=== PATIENT | male | born 1995 | race Caucasian/White ===

== ENCOUNTER 2018-07-03 16:03 | Emergency (ER) | payer BC, SELFPAY ==
[2018-07-03 16:08] VITALS: BP 162/85; PULSE 134; RESP 16; TEMP 37; O2SAT 96
--- NOTE | 2018-07-03 16:09 | W.ED.GENAD ---
Discharge Plan Disposition Patient Disposition: HOME Condition: Fair Discharge Details Chief Complaint: RashLesion Clinical Impression: Cellulitis of buttock Primary Care Provider: Isabel Ortiz ED Provider: Provider,Temporary Home Meds and New Rx's Prescriptions: New cephalexin [Keflex] 500 mg capsule 500 mg PO QID Qty: 28 RF: 0 Discharge Instructions Instructions: Cellulitis (ED) Additional Instructions: Please take antibiotics as prescribed, even if symptoms improve please take entire course. Continue to monitor the area for new/worsening symptoms including spreading of the redness, increased swelling, increased pain, fevers/chills. If these arise please seek care urgently once again. Tylenol and/or Motrin as needed for discomfort. Please contact primary care tomorrow to schedule appointment for reevaluation at the end of the week. Referrals: Isabel Ortiz [Primary Care Provider] - Discharge Data Discharge Date/Time-TO BE ENTERED AT DEPARTURE: 07/03/18 16:45 Medical Decision Making Patient is a 22-year-old male, coming by his mother, with chief complaint of swelling and erythema to the superior aspect of the gluteal cleft. He reports his symptoms began initially a few weeks ago but over recent days the pain has increased. Has not been able to feel a palpable hardened area to the left side of the gluteal cleft. Mother evaluated this yesterday and feels that it has grown in size as of today. He denies any fevers or chills. No change in bowel or bladder habits. Denies any abdominal pain. Pain does not radiate. Has not had symptoms like this historically On exam, patient has an indurated erythematous area approximately 2 cm in diameter on the left side of the gluteal cleft. No palpable area of fluctuance. I did explore this with an ultrasound I do not see any fluid collection to suggest an abscess. Rather, this seems to be localized cellulitis. Patient is noted to be tachycardic at 134. He reports that he is very nervous and his heart rate is always elevated when at doctor's office. Mother agrees with this statement. He is afebrile and nontoxic-appearing. Patient will be placed on Keflex. Encouraged hydration. Advise follow-up with primary care next week for reevaluation. At this point, I do not see any evidence of abscess or cyst. We did discuss new/worsening symptoms and when to seek care urgently once again. All of her questions and concerns were addressed and they are in agreement this plan. HPI General Mode of arrival: ambulatory. Date/Time Provider Initiated Documentation: 07/03/18 16:06. Limitations to Documentation: no limitations. Information obtained by: patient and family. History of Present Illness 22 year old M presents to the emergency department with the chief complaint of swelling and pain to gluteal cleft, described as moderate, with intensity rated at 7. Quality is described as aching, and is localized to the buttocks and left. Patient reports no radiation. Patient started experiencing this week(s) and it has been constant. No relieving factors improve symptom(s), No exacerbating factors reported . Patient notes denies cough, fever/chills, nausea/vomiting and rash. Patient did receive the following treatments prior to arrival, none Related Data Home Medications Medication Instructions Recorded Confirmed cephalexin [Keflex] 500 mg PO QID #28 cap 07/03/18 Previous Rx's Medication Instructions Recorded cephalexin [Keflex] 500 mg PO QID #28 cap 07/03/18 Allergies Allergy/AdvReac Type Severity Reaction Status Date / Time No Known Allergies Allergy Unverified 07/03/18 16:11 Review of Systems Constitutional Reports as per HPI, Denies chills and Denies fever(s) Musculoskeletal Reports as per HPI Integumentary/Breasts Reports as per HPI Neurologic Reports as per HPI, Denies sensory deficit and Denies paresthesias [facility] Social History Smoking/Tobacco Use Status: Never Exam Const General: cooperative, healthy appearing, comfortable, no acute distress and well developed Nutritional Appearance: average body habitus and well nourished Orientation: alert and awake Resp Effort & Inspection: normal respiratory effort, able to speak in complete sentences and no respiratory distress Auscultation: clear to auscultation bilaterally Cardio Rate: regular rate Rhythm: regular rhythm Heart Sounds: S1 normal and S2 normal Back/Spine/Pelvis Other: Patient has a 2cm area of induration and erythmea to the left side of the gluteal cleft. No fluctuance is palpable. Area warm to palpation. Tenderness elicited with palpation over indurated area. Back/spine/pelvis image: 1. area of swelling and erythema Skin General skin exam: erythema and induration Neuro General: alert and awake Cognition: normal cognition Speech: speech normal Gait: normal gait Sensory Exam: no sensory deficits noted Psych Appearance: grossly normal and well kempt Mental Status: mental status grossly normal Speech and Movement: speech and movement normal
[2018-07-03 16:45] VITALS: PULSE 100; RESP 16; O2SAT 96
--- NOTE | 2018-07-03 22:23 | ED.GENADUL_ITS ---
Discharge Plan Disposition Patient Disposition: HOME Condition: Fair Discharge Details Chief Complaint: RashLesion Clinical Impression: Cellulitis of buttock Primary Care Provider: Isabel Ortiz ED Provider: Provider,Temporary Home Meds and New Rx's Prescriptions: New cephalexin [Keflex] 500 mg capsule 500 mg PO QID Qty: 28 RF: 0 Discharge Instructions Instructions: Cellulitis (ED) Additional Instructions: Please take antibiotics as prescribed, even if symptoms improve please take entire course. Continue to monitor the area for new/worsening symptoms including spreading of the redness, increased swelling, increased pain, fevers/chills. If these arise please seek care urgently once again. Tylenol and/or Motrin as needed for discomfort. Please contact primary care tomorrow to schedule appointment for reevaluation at the end of the week. Referrals: Isabel Ortiz [Primary Care Provider] - Discharge Data Discharge Date/Time-TO BE ENTERED AT DEPARTURE: 07/03/18 16:45 Medical Decision Making Patient is a 22-year-old male, coming by his mother, with chief complaint of swelling and erythema to the superior aspect of the gluteal cleft. He reports his symptoms began initially a few weeks ago but over recent days the pain has increased. Has not been able to feel a palpable hardened area to the left side of the gluteal cleft. Mother evaluated this yesterday and feels that it has grown in size as of today. He denies any fevers or chills. No change in bowel or bladder habits. Denies any abdominal pain. Pain does not radiate. Has not had symptoms like this historically On exam, patient has an indurated erythematous area approximately 2 cm in diameter on the left side of the gluteal cleft. No palpable area of fluctuance. I did explore this with an ultrasound I do not see any fluid collection to suggest an abscess. Rather, this seems to be localized cellulitis. Patient is noted to be tachycardic at 134. He reports that he is very nervous and his heart rate is always elevated when at doctor's office. Mother agrees with this statement. He is afebrile and nontoxic-appearing. Patient will be placed on Keflex. Encouraged hydration. Advise follow-up with primary care next week for reevaluation. At this point, I do not see any evidence of abscess or cyst. We did discuss new/worsening symptoms and when to seek care urgently once again. All of her questions and concerns were addressed and they are in agreement this plan. HPI General Mode of arrival: ambulatory . Date/Time Provider Initiated Documentation: 07/03/18 16:06 . Limitations to Documentation: no limitations . Information obtained by: patient and family . History of Present Illness 22 year old M presents to the emergency department with the chief complaint of swelling and pain to gluteal cleft, described as moderate, with intensity rated at 7. Quality is described as aching, and is localized to the buttocks and left. Patient reports no radiation. Patient started experiencing this week(s) and it has been constant. No relieving factors improve symptom(s), No exacerbating factors reported . Patient notes denies cough, fever/chills, nausea/vomiting and rash. Patient did receive the following treatments prior to arrival, none Related Data Home Medications Medication Instructions Recorded Confirmed cephalexin [Keflex] 500 mg PO QID #28 cap 07/03/18 Previous Rx's Medication Instructions Recorded cephalexin [Keflex] 500 mg PO QID #28 cap 07/03/18 Allergies Allergy/AdvReac Type Severity Reaction Status Date / Time No Known Allergies Allergy Unverified 07/03/18 16:11 Review of Systems Constitutional Reports as per HPI, Denies chills and Denies fever(s) Musculoskeletal Reports as per HPI Integumentary/Breasts Reports as per HPI Neurologic Reports as per HPI, Denies sensory deficit and Denies paresthesias [facility] Social History Smoking/Tobacco Use Status: Never Exam Const General: cooperative, healthy appearing, comfortable, no acute distress and well developed Nutritional Appearance: average body habitus and well nourished Orientation: alert and awake Resp Effort & Inspection: normal respiratory effort, able to speak in complete sentences and no respiratory distress Auscultation: clear to auscultation bilaterally Cardio Rate: regular rate Rhythm: regular rhythm Heart Sounds: S1 normal and S2 normal Back/Spine/Pelvis Other: Patient has a 2cm area of induration and erythmea to the left side of the gluteal cleft. No fluctuance is palpable. Area warm to palpation. Tenderness elicited with palpation over indurated area. Back/spine/pelvis image: 1. area of swelling and erythema Skin General skin exam: erythema and induration Neuro General: alert and awake Cognition: normal cognition Speech: speech normal Gait: normal gait Sensory Exam: no sensory deficits noted Psych Appearance: grossly normal and well kempt Mental Status: mental status grossly normal Speech and Movement: speech and movement normal
== END 2018-07-03 16:45 | disposition home or self-care (01) ==
LOC: ER 17:16
PROVIDERS: Emergency Provider Physician Assistant; PCP Nurse Practitioner Family
DX: L03.317 Cellulitis of buttock (principal)
CPT/HCPCS: 99284

== ENCOUNTER 2021-11-22 19:06 | Outpatient (REF) | payer OTHER, SELFPAY ==
[2021-11-22 20:04] LABS: Anion Gap 8.8 mmol/L (3-11); BUN 19 mg/dL (7-18); CO2 27.2 mmol/L (21.0-32.0); Calcium 9.5 mg/dL (8.5-10.1); Chloride 103 mmol/L (98-107); Glucose 78 mg/dL (74-106); Sodium 139 mmol/L (136-145)
[2021-11-24 09:59] LABS: Hepatitis C Ab w Rflx HCV PCR Negative (Negative)
[2021-11-24 10:08] LABS: HIV-1/2 Ag & Ab Screen Negative (Negative)
== END 2021-11-22 19:07 | disposition home or self-care (01) ==
LOC: NCHCN 19:06
PROVIDERS: PCP Nurse Practitioner Family; Visit Provider Nurse Practitioner Family
DX: I10 Essential (primary) hypertension (principal); Z11.4 Encounter for screening for human immunodeficiency virus [HIV]; Z11.59 Encounter for screening for other viral diseases
CPT/HCPCS: 80048; 86803; 87389

== ENCOUNTER 2024-08-14 16:23 | Outpatient (REF) | payer OTHER, SELFPAY ==
[2024-08-14 21:12] LABS: HCT 46.3 % (40.0-50.0); HGB 15.7 g/dL (13.5-17.5); MCH 28.8 pg (27.0-33.0); MCHC 33.9 % (32.0-36.0); MCV 85 fL (80-95); MPV 8.9 fL (8.0-11.0); Platelet Count 460 10^3/uL (130-400); RBC 5.45 10^6/uL (4.36-5.78); RDW 11.9 % (11.8-14.1); RDW-SD 36.1 fL; WBC 7.68 10^3/uL (4.4-10.8)
[2024-08-14 21:34] LABS: ALT 50 U/L (16-63); AST 18 U/L (15-37); Albumin 4.5 g/dL (3.4-5.0); Alkaline Phosphatase 72 U/L (46-116); Anion Gap 8.4 mmol/L (3-11); BUN 20 mg/dL (7-18); Bilirubin, Total 0.28 mg/dL (0.2-1.0); CO2 29.6 mmol/L (21.0-32.0); CREATININE 1.1 mg/dL (0.70-1.30); Calcium 9.5 mg/dL (8.5-10.1); Calculated LDL 112 mg/dL (<100); Chloride 104 mmol/L (98-107); Cholesterol 176 mg/dL (<200); Estimated GFR 94.95 (mL/min/1.73m2); Glucose 99 mg/dL (74-106); HDL Cholesterol 42 mg/dL (40-60); Potassium 4.5 mmol/L (3.5-5.1); Sodium 142 mmol/L (136-145); Total Protein 7.6 g/dL (6.4-8.2); Triglyceride 111 mg/dL (<150)
== END 2024-08-14 16:24 | disposition home or self-care (01) ==
LOC: NCHCN 16:23
PROVIDERS: PCP Nurse Practitioner Family; Visit Provider Nurse Practitioner Family
DX: Z00.00 Encounter for general adult medical examination without abnormal findings (principal)
CPT/HCPCS: 80053; 80061; 85027

== ENCOUNTER 2024-09-30 19:24 | Emergency (ER) | payer OTHER, SELFPAY ==
[2024-09-30 19:26] VITALS: BP 178/73; PULSE 89; RESP 16; TEMP 36.6; O2SAT 100
[2024-09-30 19:29] VITALS: BP 178/73; PULSE 89; RESP 16; TEMP 36.6; O2SAT 100
--- NOTE | 2024-09-30 19:30 | DI.CT_ITS ---
Exam(s) CT FACIAL W EXAM: CT FACIAL W CLINICAL HISTORY: right sided mandible and zygomatic arch pain. TECHNIQUE: Imaging Protocol: Axial computed tomography images with coronal and sagittal reformatted images were created and reviewed CONTRAST MATERIAL: Intravenous: Omnipaque 350 Contrast volume:100 mL COMPARISON: No exams were available for comparison FINDINGS: Facial Bones: No definite fracture is noted in facial bones. Sinuses and Mastoids: Unremarkable. Globes, extraocular muscles, optic nerves and retrobulbar fat: Normal. Upper aerodigestive tract: Normal. Mandible and bilateral temporomandibular joints: Normal. Soft tissues: Normal. Enhancement: No abnormal enhancement. IMPRESSION: 1. No evidence of fracture/dislocation in facial bones. 2. No evidence of soft tissue mass or abscess. RADIATION DOSE DELIVERED: 568mGy.cm Total DLP DATA REPOSITORY: All CT scans at this facility are submitted to the National Radiology Data Registry (NRDR) Dose Index Registry (DIR) with the [employer] (A[employer]). RADIATION OPTIMIZATION: All CT scans at this facility use at least one of these dose optimization te chniques: automated exposure control; mA and/or kV adjustment per patient size (includes targeted exa ms where dose is matched to clinical indication); or iterative reconstruction.
--- NOTE | 2024-09-30 19:40 | ED.GENADUL_ITS ---
Discharge Plan Disposition Patient Disposition: Home Condition: Stable Discharge Details Clinical Impression: Acute oral pain Primary Care Provider: Isabel Ortiz ED Provider: Eddie Barnes Home Meds and New Rx's Prescriptions: New cyclobenzaprine 10 mg tablet 10 mg PO TID PRNQty: 20 0RF gabapentin 300 mg capsule 300 mg PO TID Qty: 30 0RF Discharge Instructions Additional Instructions: Here imaging did not show any concerning findings at this time. I recommend continuing the amoxicillin and continuing 600 mg of ibuprofen and 1000 mg of acetaminophen every 6 hours as needed. I recommend following up with your dentist if not improving. If you feel more ill or have new symptoms such as inability swallow liquids or high fevers return to the emergency department for reevaluation HPI General Mode of arrival: ambulatory . Date/Time Provider Initiated Documentation: 09/30/24 19:31 . Limitations to Documentation: no limitations . Information obtained by: patient . History of Present Illness 29 year old M presents to the emergency department with the chief complaint of right sided jaw/dental pain, described as moderate, Quality is described as aching, and is localized to the face. Patient reports no radiation. Patient started experiencing this day(s) (4) and it has been constant. No relieving factors improve symptom(s), No exacerbating factors reported . Patient notes no other symptoms.. Patient did receive the following treatments prior to arrival, NSAID Related Data Home Medications ?Medication ?Instructions ?Recorded ?Confirmed cyclobenzaprine 10 mg tablet 10 mg PO TID PRN #20 tabs 09/30/24 gabapentin 300 mg capsule 300 mg PO TID #30 caps 09/30/24 Previous Rx's ?Medication ?Instructions ?Recorded cyclobenzaprine 10 mg tablet 10 mg PO TID PRN #20 tabs 09/30/24 gabapentin 300 mg capsule 300 mg PO TID #30 caps 09/30/24 Allergies Allergy/AdvReac Type Severity Reaction Status Date / Time No Known Allergies Allergy Unverified 09/30/24 19:29 General Stated Complaint: DentalOral HERNAN: 4 Review of Systems All systems reviewed & are unremarkable except as noted in HPI and below Constitutional Constitutional: Denies chills and Denies fever(s) ENT Ears, Nose, Mouth, and Throat: Reports dental pain Cardiovascular Cardiovascular: Denies chest pain and Denies dyspnea Respiratory Respiratory: Denies cough and Denies dyspnea Gastrointestinal Gastrointestinal: Denies abdominal pain, Denies nausea and Denies vomiting Musculoskeletal Musculoskeletal: Denies joint swelling Endocrine Endocrine: Denies cold intolerance and Denies heat intolerance Allergic/Immunologic Allergic/Immunologic: Denies urticaria Exam Const General: no acute distress Orientation: alert [facility] Head: normal to inspection Ears: external ears normal General nose exam: external nose normal Mouth: moist mucous membranes Teeth and gingiva: dentition not poor Eyes General: appearance normal, both eyes and all related structures Neck Neck: normal visual inspection Resp Effort & Inspection: normal respiratory effort and able to speak in complete sentences Cardio Rate: regular rate Skin General skin exam: no rashes or lesions noted Neuro General: patient alert and patient oriented x3 Extrem General: normal to inspection Psych Mental Status: mental status grossly normal Course Vital Signs Vital signs: Vital Signs Temperature 36.6 C 09/30/24 19:26 Pulse 89 09/30/24 19:26 Respiratory Rate 16 09/30/24 19:26 Blood Pressure 178/73 H 09/30/24 19:26 Pulse Oximetry 100 09/30/24 19:26 Temperature 36.6 C 09/30/24 19:29 Pulse 89 09/30/24 19:29 Respiratory Rate 16 09/30/24 19:29 Blood Pressure 178/73 H 09/30/24 19:29 Pulse Oximetry 100 09/30/24 19:29 Pain Level 9 09/30/24 19:35 Medical Decision Making 29-year-old male with no significant chronic medical problems comes in with right upper and lower pain in his mouth. He says has been going on 3 to 4 days and saw his dentist who put him on amoxicillin and that his PCP put him on Magic [employer] washings were taken ibuprofen and Tylenol with still has continued pain so came here for an evaluation. He never has pain like this and usually does not need pain medication. He localizes the pain to the right upper and right lower gum lines without any visible or palpable deformities. The uvula is midline, no submandibular swelling, no pain over the hyoid restricted neck movements. Unclear etiology for his continued pain, is no visible abscess on exam. Will check a CBC, CMP and inflammatory markers obtain a CT to evaluate for abscess. CT shows no acute findings and lab work unremarkable. Discussed with him and he does also have some discomfort at the TMJ question if he has TMJ disorder. He states he is unable to sleep due to the pain so we will add on gabapentin and also trial cyclobenzaprine. He will follow-up with his dentist and return precautions given Quality:SDOH Health Related Social Needs: Health related social needs problems with daily activi ties (Z73.9) PFSH All Active Problems (Updated 09/30/24 @ 20:44 by Eddie Barnes MD) Acute oral pain (Acute) Social History Smoking/Tobacco Use Status: Never Smoking risk assessment performed?: Yes Alcohol Intake: current Drug use: Never Substance use type: does not use Do you feel safe in your relationship?: Yes
[2024-09-30] MEDS: Ketorolac 15 MG/ML VIAL IVP (20:02)
[2024-09-30 20:09] LABS: Abs Immature Grans 0.04 10^3/uL (0.0-0.06); Absolute Basophil Count 0.05 10^3/uL (0.0-0.2); Absolute Eosinophil Count 0.16 10^3/uL (0.0-0.7); Absolute Monocyte Count 0.86 10^3/uL (0.1-0.8); Absolute Neutrophil Count 5.65 10^3/uL (1.2-6.7); Basophils % 0.5 %; Eosinophils % 1.7 %; HCT 51.1 % (40.0-50.0); HGB 16.9 g/dL (13.5-17.5); Immature Grans % 0.4 %; Lymphocytes % 27.8 %; MCH 28.9 pg (27.0-33.0); MCHC 33.1 % (32.0-36.0); MCV 87 fL (80-95); MPV 8.7 fL (8.0-11.0); Monocytes % 9.2 %; Neutrophils % 60.4 %; Platelet Count 372 10^3/uL (130-400); RBC 5.85 10^6/uL (4.36-5.78); RDW 11.9 % (11.8-14.1); RDW-SD 38.2 fL; WBC 9.36 10^3/uL (4.4-10.8)
[2024-09-30 20:10] LABS: ESR 1 mm/hr (0-15)
[2024-09-30] MEDS: Omnipaque 350 MG/ML 100 ML BTL IJ (20:12)
[2024-09-30] MEDS: Normal Saline - Diluent 50 ML VIAL IJ (20:13)
[2024-09-30 20:25] LABS: ALT 38 U/L (16-63); AST 22 U/L (15-37); Albumin 4.8 g/dL (3.4-5.0); Alkaline Phosphatase 72 U/L (46-116); Anion Gap 9.5 mmol/L (3-11); BUN 13 mg/dL (7-18); Bilirubin, Total 0.3 mg/dL (0.2-1.0); CO2 28.5 mmol/L (21.0-32.0); CREATININE 1.4 mg/dL (0.70-1.30); Calcium 9.5 mg/dL (8.5-10.1); Chloride 103 mmol/L (98-107); Estimated GFR 70.65 (mL/min/1.73m2); Glucose 97 mg/dL (74-106); Magnesium 2.2 mg/dL; Sodium 141 mmol/L (136-145); Total Protein 8.1 g/dL (6.4-8.2)
[2024-09-30 20:26] LABS: C-Reactive Protein < 0.50 mg/dL (<or=0.5)
--- NOTE | 2024-09-30 21:02 | DI.VRAD_ITS ---
PROCEDURE INFORMATION: Exam: CT Maxillofacial With Contrast Exam date and time: 09/30/2024 8:10 PM Age: 29 years old Clinical indication: Other: Right sided mandible and zygomatic arch pain TECHNIQUE: Imaging protocol: Computed tomography of the face with contrast. Contrast material: OMNIPAQUE 350; Contrast volume: 100 ml; Contrast route: INTRAVENOUS (IV); COMPARISON: No relevant prior studies available. FINDINGS: Paranasal sinuses: No air-fluid levels. Orbital cavities: Orbits are normal. Globes are unremarkable. Bones: No acute fracture. Soft tissues: Unremarkable. IMPRESSION: No acute findings. Dictated and Authenticated by: Deandre Brush MD. Orderin Cameron Morgan MD
[2024-09-30] MEDS: Cyclobenzaprine 10 MG TAB PO (21:19)
[2024-09-30] MEDS: Cyclobenzaprine 10 MG TAB, 3 TABS/BTL PO (21:19)
[2024-09-30] MEDS: Gabapentin 300 MG CAP PO (21:19)
[2024-09-30 21:29] VITALS: BP 142/68; PULSE 82; RESP 16; O2SAT 98
== END 2024-09-30 21:29 | disposition home or self-care (01) ==
LOC: ER 21:31
PROVIDERS: Emergency Provider Emergency Medicine; PCP Nurse Practitioner Family
DX: K08.89 Other specified disorders of teeth and supporting structures (principal)
CPT/HCPCS: 36415; 80053; 85652; 96374; 99285; 70487; 83735; 85025; 86140; 99284; J1885; J3490

== ENCOUNTER 2024-10-01 14:38 | Outpatient (REF) | payer OTHER, SELFPAY ==
[2024-10-03 11:16] LABS: HSV 1 DNA Result Negative (Negative); HSV 2 DNA Result Negative (Negative)
[2024-10-05 10:39] LABS: HSV Type 1 Ab, IgG Negative (Negative); HSV Type 2 Ab, IgG Negative (Negative)
== END 2024-10-01 14:39 | disposition home or self-care (01) ==
LOC: NCHCN 14:38
PROVIDERS: PCP Nurse Practitioner Family; Visit Provider Nurse Practitioner Family
DX: K13.79 Other lesions of oral mucosa (principal)
CPT/HCPCS: 87529; 86695; 86696

== ENCOUNTER 2024-10-01 19:52 | Emergency (ER) | payer OTHER, SELFPAY ==
[2024-10-01 19:54] VITALS: BP 134/100; PULSE 87; RESP 20; TEMP 36.7; O2SAT 98
[2024-10-01 19:56] VITALS: BP 134/100; PULSE 87; RESP 20; TEMP 36.7; O2SAT 98
--- NOTE | 2024-10-01 20:12 | ED.GENADUL_ITS ---
Discharge Plan Disposition Patient Disposition: Home Condition: Stable Discharge Details Clinical Impression: Acute oral pain Primary Care Provider: Audrey Maurice ED Provider: Marguerite Aguirre Home Meds and New Rx's Prescriptions: No Action cyclobenzaprine 10 mg tablet 10 mg PO TID PRNQty: 20 0RF gabapentin 300 mg capsule 300 mg PO TID Qty: 30 0RF Discharge Instructions Instructions: Dental Pain ED Additional Instructions: At this time I am unsure of what is causing your pain. Please keep your PCP appointment as previously scheduled tomorrow. You were given an attempt at a dental block tonight with lidocaine and bupivacaine. You will have some numbness for approximately 4 to 6 hours. Please be careful when chewing as you may bite the side of your cheek. Take the morphine as directed you are given 4 tablets to go this will make you sleepy. Do not operate heavy machinery or take alcohol while using this medication. You may take Tylenol and ibuprofen with this. Please take Tylenol or Ibuprofen with food every 4-6 hours as needed for pain and swelling. Thank you for allowing us to care for you today. Follow up with primary care provider in 3-5 days. Return to ED sooner if any worsening rash, headache, blurry vision, fever, vomiting, problems swallowing or concerns. Referrals: Audrey Maurice [Primary Care Provider] - 1 day HPI General Mode of arrival: ambulatory . Date/Time Provider Initiated Documentation: 10/01/24 19:52 . Limitations to Documentation: no limitations . Information obtained by: patient, family, RN notes reviewed and old records reviewed . HPI Narrative: 29-year-old male presents to the ER with a chief complaint of 10 out of 10 throbbing aching pain in the right side of his jaw and mouth for the last 5 days. Patient was seen here yesterday had a CT of his head, labs which were all unremarkable. Patient has seen his PCP who has prescribed him oxycodone took a viral swab and done some lab work. He continues to have 10 out of 10 pain. He is also taking cyclobenzaprine and gabapentin with little to no relief. The only relief that is provided is with cold such as water or ice cream. He does have small white clustered lesions noted to his right upper inner cheek. No palpable dental abscess no dental caries visible or any other abnormality. He he has no pain with external palpation. No swelling noted. He is speaking in full sentences. Denies any neck pain injuries or head injuries. Related Data Home Medications ?Medication ?Instructions ?Recorded ?Confirmed cyclobenzaprine 10 mg tablet 10 mg PO TID PRN #20 tabs 09/30/24 10/01/24 gabapentin 300 mg capsule 300 mg PO TID #30 caps 09/30/24 10/01/24 Previous Rx's ?Medication ?Instructions ?Recorded cyclobenzaprine 10 mg tablet 10 mg PO TID PRN #20 tabs 09/30/24 gabapentin 300 mg capsule 300 mg PO TID #30 caps 09/30/24 Allergies Allergy/AdvReac Type Severity Reaction Status Date / Time No Known Allergies Allergy Unverified 10/01/24 19:57 General Stated Complaint: DentalOral HERNAN: 4 Review of Systems All systems reviewed & are unremarkable except as noted in HPI and below ENT Ears, Nose, Mouth, and Throat: Reports as per HPI, Denies otalgia, Reports facial pain, Reports mouth lesions, Reports mouth pain, Denies sinus pain and Denies sinus pressure Exam [facility] Head: normal to inspection Ears: hearing grossly normal bilaterally General nose exam: external nose normal and nares normal Face and sinus: normal facial exam, sinuses nontender, face symmetric, no erythema, no edema, no sinus tenderness and no tenderness Mouth: lip normal, tongue normal, salivary ducts normal, oropharynx normal, moist mucous membranes, normal lip, no muffled voice, No abnormal TMJ and No restricted motion Mouth/tongue images: 2 1. Small area of clustered white dots, no dental abscess, area of fluctuance or dental caries. Teeth and gingiva: dentition normal, gingiva normal and no caries Throat: posterior oropharynx normal, tonsils normal and uvula midline Neck Neck: normal visual inspection Lymphatic: no lymphadenopathy noted Chest Chest: normal inspection of the chest Resp Effort & Inspection: normal respiratory effort and able to speak in complete sentences Auscultation: clear to auscultation bilaterally Skin General skin exam: no rashes or lesions noted Course Vital Signs Vital signs: Vital Signs Temperature 36.7 C 10/01/24 19:54 Pulse 87 10/01/24 19:54 Respiratory Rate 20 10/01/24 19:54 Blood Pressure 134/100 H 10/01/24 19:54 Pulse Oximetry 98 10/01/24 19:54 Temperature 36.7 C 10/01/24 19:56 Pulse 87 10/01/24 19:56 Respiratory Rate 20 10/01/24 19:56 Blood Pressure 134/100 H 10/01/24 19:56 Blood Pressure Position Sitting 10/01/24 19:56 Pulse Oximetry 98 10/01/24 19:56 Oxygen Delivery Method Room Air 10/01/24 19:56 Oxygen Flow Rate 0 10/01/24 19:56 Procedure Nerve Block 1st Nerve Block: Date of Procedure: 10/01/24 Time of procedure: 20:46 Provider that performed the procedure: Marguerite Aguirre Indication: Local pain control Standard Time Out Performed: Yes Patient Consented: Verbally Local Anesthetic: Lidocaine 1%, Bupivicaine 0.5% and With Epi Amount of anethetic used(mL): 2 Sterility: Non Sterile Laterality: Right Nerve Blocks: other (Inferior alveolar Dental block). Needle Length: Other (1.5) Post Procedure Pain Score (0-10): 8 Procedure Tolerated: No Complications and Patient tolerated well Procedure Outcome: Unsuccessful (Continues to report pain 8/10) Medical Decision Making 29-year-old male presents to the ER with a chief complaint of 10 out of 10 throbbing aching pain in the right side of his jaw and mouth for the last 5 days. Patient was seen here yesterday had a CT of his head, labs which were all unremarkable. Patient has seen his PCP who has prescribed him oxycodone took a viral swab and done some lab work. He continues to have 10 out of 10 pain. He is also taking cyclobenzaprine and gabapentin with little to no relief. The only relief that is provided is with cold such as water or ice cream. He does have small white clustered lesions noted to his right upper inner cheek. No palpable dental abscess no dental caries visible or any other abnormality. He he has no pain with external palpation. No swelling noted. He is speaking in full sentences. Denies any neck pain injuries or head injuries. Discussed options including a dental block to see if this helps with the pain. Steroid such as prednisone for possible neuralgia also considered. Other differential diagnosis which it sounds like the primary care provider is talked about is trigeminal neuralgia, herpes zoster infection, Topical hurricaine gel applied, discussed risks and benefits of denta lblock to include vascular injection, allergic reaction, inadequate anesthesia. Minimal pain relief after dental block reports an 8 out of 10. Given morphine PO IR 15 mg here in the department and to go. Patient has not taken the gabapentin or the Flexeril as he had a rash at his PCPs office this morning after taking Flexeril this morning. He does have an PCP appointment tomorrow at 1130 I did encourage him to keep this. This text was generated using [employer] dictation system, please disregard any oddities of phrase or misspellings. Medical Records Medical records reviewed: Yes I reviewed the patient's medical records. Lab Data Lab results reviewed: Yes I reviewed the patient's lab results. Quality:SDOH Health Related Social Needs: 2 Health related social needs problems with daily activi ties (Z73.9) PFSH All Active Problems (Updated 10/01/24 @ 21:13 by Marguerite Aguirre NP) Acute oral pain (Acute) Social History Smoking/Tobacco Use Status: Never Smoking risk assessment performed?: Yes Alcohol Intake: current Drug use: Never Substance use type: does not use Do you feel safe in your relationship?: Yes PAWSS Have you Been Recently Intoxicated or Drunk Within the Last 30 days?: No Have you Ever Experienced Previous Episodes of Alcohol Withdrawal?: No Have you ever Experienced Withdrawal Seizures?: No Have you ever Experienced Delirium Tremens(DT)s?: No Have you ever undergone Alcohol Rehabilitation Treatment (i.e, inpt ot outpatient treatment programs)?: No Have you ever Experienced Blackouts?: No Have you ever Combined Alcohol with other Downers within the last 90 days?: No Have you ever Combined Alcohol with any other Substance of Abuse during the last 90 days?: No Positive Blood Alcohol level on Presentation? [PCS.BAL]: No Evidence of Increased Autonomic Activity (i.e. HR>120, tremor, sweating, agitation, nausea)?: No Result: 0
[2024-10-01] MEDS: Lidocaine 1% Pres-Free W/EPI 1/200,000 30 ML VIAL IJ (20:29)
[2024-10-01] MEDS: Bupivacaine 0.5% Pres-Free 30 ML VIAL IJ (20:29)
[2024-10-01] MEDS: Benzocaine 20% Gel 30 GM JAR MM (20:30)
[2024-10-01] MEDS: MORPHine IR 15 MG TAB PO (21:09)
[2024-10-01] MEDS: MORPHine IR 15 MG TAB, 4 TABS/BTL PO (21:10)
--- NOTE | 2024-10-02 11:40 | NUR.NOTE ---
Nursing Note: RASHAUN White from [facility] called about the patient who sees his primary at their office. She needed to know about the morphine that we sent him home with- She asked for the mgs of the tablets that were given to him and if it was IR.
== END 2024-10-01 21:18 | disposition home or self-care (01) ==
PROVIDERS: Emergency Provider Registered Nurse Emergency; PCP Nurse Practitioner Family
DX: R68.84 Jaw pain (principal); K13.79 Other lesions of oral mucosa
CPT/HCPCS: 64400; J0665; J2004

== ENCOUNTER 2024-10-02 14:33 | Outpatient (CLI) | payer OTHER, SELFPAY ==
--- NOTE | 2024-10-02 | DI.MRI_ITS ---
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 TECHNIQUE: Multiplanar multisequence MRI of the brain and internal auditory canals was performed. CONTRAST MATERIAL: IV Contrast: 18 mL of Dotarem contrast administered. COMPARISON: CT CT FACIAL W from 09/30/2024 FINDINGS: VISUALIZED VENTRICLES AND EXTRA-AXIAL SPACES: Normal in size and morphology for the patient's age. HEMORRHAGE: None. VISUALIZED CEREBRAL PARENCHYMA: No focus of restricted diffusion to suggest acute infarct. No space-o ccupying lesion identified. MIDLINE SHIFT: None. VISUALIZED BRAINSTEM/CEREBELLUM: Normal. CALVARIUM: Normal. ENHANCEMENT: No suspicious enhancement identified. VISUALIZED PARANASAL SINUSES/MASTOIDS: Clear. VISUALIZED ATKA OF [place]: Normal flow void. PITUITARY GLAND: Unremarkable. BONES: Unremarkable. IAC/CP ANGLE: The internal auditory canals are within normal limits. The cerebellar pontine angles ar e unremarkable. Visualized Meckel's caves are unremarkable. No enhancing lesions are seen. Visualiz ed portion of the facial nerves appear within normal limits. OTHER FINDINGS: The visualized orbits and retro-orbital soft tissues are unremarkable. The parotid a nd submandibular glands are unremarkable. No focal fluid collection is seen to suggest an abscess. No soft tissue mass is appreciated. The temporomandibular joints appear grossly unremarkable. IMPRESSION: Unremarkable examination. No evidence of an osseous abnormality. No evidence of a soft tissue mass or abscess. DATA REPOSITORY:
[2024-10-02] MEDS: Gadoterate meglumine 20 ML SYRINGE 18 ML IVP (15:57)
[2024-10-02] MEDS: Normal Saline Flush 10 ML SYR IJ (15:58)
== END 2024-10-02 14:53 ==
LOC: DI 14:34
PROVIDERS: PCP Nurse Practitioner Family; Visit Provider Nurse Practitioner Family
DX: R51.9 Headache, unspecified (principal); G51.9 Disorder of facial nerve, unspecified
CPT/HCPCS: 70543